=== PATIENT | female | born 1950 | race Caucasian/White ===

== ENCOUNTER → 2017-01-27 | Outpatient (CLI) | payer MEDICARE, BC | END | disposition home or self-care (01) | LOC: GMAB 13:54 | PROVIDERS: ATTEND Family Medicine | DX: R53.82 Chronic fatigue, unspecified (principal) ==

== ENCOUNTER → 2017-06-11 | Outpatient (CLI) | payer MEDICARE, BC ==
--- NOTE | 2017-06-12 10:12 | MRI ---
EXAM DESCRIPTION: Cervical Spine CLINICAL HISTORY: CERVICAL DISK DISORDER, RADICULOPATHY COMPARISON: None Available. TECHNIQUE: MRI of the cervical spine is performed according to our usual protocol. FINDINGS: Straightening of the cervical spine with multilevel disc degeneration and desiccation is present with posterior disc bulges at C4-5 and C5-6 with thecal sac in the lower range of normal. The prevertebral and paraspinous regions are unremarkable. No intradural or intramedullary abnormality is noted in the skull base and foramen magnum appear normal. Anterior degenerative changes at C1-2 articulation are noted without compromise of the foramen magnum. Vertebral height is maintained with mild disc space narrowing at C5-6. C2-3: the disc is well hydrated. There is no loss of height. There is no bulging. The facets are unremarkable with no significant hypertrophy. There is no stenosis or impingement. C3-4: the disc is well hydrated. There is no loss of height. There is no bulging. The facets are unremarkable with no significant hypertrophy. There is no stenosis or impingement. C4-5: Disc desiccation with symmetric annular bulge and borderline AP diameter canal stenosis with adequate neural foramina. C5-6: Disc desiccation and mild disc space narrowing with moderate annular bulge with borderline AP diameter canal stenosis with mild compromise both neural foramina. C6-7: the disc is well hydrated. There is no loss of height. There is no bulging. The facets are unremarkable with no significant hypertrophy. There is no stenosis or impingement. C7-T1: the disc is well hydrated. There is no loss of height. There is no bulging. The facets are unremarkable with no significant hypertrophy. There is no stenosis or impingement. IMPRESSION: 1. Straightening of the cervical spine with modest degenerative disc disease with annular bulges at C4-5 and C5-6 with borderline AP diameter canal stenosis at these two levels with moderate C5-6 foraminal narrowing and milder C4-5 neural foraminal narrowing. 2. The remainder the MRI examination is normal. Electronically signed by: Reyes Corea MD 06/12/2017 10:11 AM CDT
--- NOTE | 2017-06-12 11:18 | MRI ---
EXAM DESCRIPTION: Lumbar Spine w/o Contrast CLINICAL HISTORY: INTERVERTEBRAL DISC DISORDER, RADICULOPATHY COMPARISON: None Available. TECHNIQUE: MRI of the lumbar spine is performed according to our usual protocol with axial and sagittal multi sequence imaging. FINDINGS: MRI of the lumbar spine demonstrates normal alignment with preservation of vertebral and disc height with mild disc desiccation evident at L3-4 and L4-5. No intradural or intramedullary abnormality is noted in the conus is positioned at the lower T12 level. Spinal canal is adequate throughout and mild disc bulges at several levels are apparent. The paraspinous and retroperitoneal structures are unremarkable. L1-2: the disc is well hydrated. There is no loss of height. There is no bulging. The facets are unremarkable with no significant hypertrophy. There is no stenosis or impingement. L2-3: Very small right parasagittal disc protrusion partially effacing the thecal sac anteriorly and slight narrowing of the anterior inferior right L2 neural foramen with normal appearance of the disc otherwise. No significant facet arthropathy present. L3-4: Mild disc desiccation and mild symmetric annular bulge with mild facet arthropathy and adequate canal and neural foramina. L4-5: Mild disc desiccation and symmetric annular bulge with very slight fissuring of the left posterior lateral annulus with modest facet arthropathy. Adequate canal and neural foramina without lateralizing herniation. L5-S1: the disc is well hydrated. There is no loss of height. There is no bulging. The facets are unremarkable with no significant hypertrophy. There is no stenosis or impingement. IMPRESSION: 1. Normal alignment of the spine with adequate canal throughout with mild disc desiccation at L3-4 and L4-5. 2. Very small right parasagittal disc protrusion at L2-3 without definite neural compression. 3. Mild annular bulge at L4-5 with fissuring of the posterior lateral annulus on the left without lateralizing herniation with modest facet arthropathy. 4. Mild symmetric annular bulge and facet arthropathy L3-4 without neural compression. Electronically signed by: Reyes Corea MD 06/12/2017 11:17 AM CDT
== END | disposition home or self-care (01) ==
LOC: MRI 09:40
PROVIDERS: ATTEND Psychiatry & Neurology Neurology
DX: M50.122 Cervical disc disorder at C5-C6 level with radiculopathy (principal); M51.16 Intervertebral disc disorders with radiculopathy, lumbar region

== ENCOUNTER → 2018-07-15 | Outpatient (CLI) | payer MEDICARE, BC ==
--- NOTE | 2018-07-15 15:54 | MRI ---
EXAM DESCRIPTION: Brain w/oContrast: MRI. 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 Posterior head and neck pain. COMPARISON: MRI scan of the cervical spine. TECHNIQUE: Multiplanar, high-field MRI unit, multiple diffusion sequences, multiple conventional sequences without contrast. FINDINGS: Small bilateral foci of hyperintense FLAIR and T2-weighted signal in the periventricular white matter abutting the bilateral occipital horns of the lateral ventricles more on the left. Also superior to the bilateral ventricles. No hemorrhage, no cerebral edema, no mass-effect. No diffusion restriction. Normal signal in the bilateral basal ganglia. Normal signal in the brainstem and cerebellar hemispheres. No hemorrhage, no cerebral edema, no mass-effect. No diffusion restriction. Concordance of the diffusion and non-diffusion sequences with no diffusion restriction. Cortical sulci, ventricles, and other CSF spaces, and the subdural spaces are normally configured for patients age. No effacement or displacement. No midline shift. No extra-axial hemorrhage. Normal flow signal void in the major vessels of the [place], and the venous sinuses. IACs are symmetric bilaterally. Minimal fluid signal in the bilateral inferior mastoid air cells. No mass effect in the bilateral cerebellopontine angles. Pituitary gland occupies most of the sella. Base of the cerebellar tonsils is slightly above the foramen magnum. Normal signal in the paranasal sinuses.. The bony calvarium is intact. IMPRESSION: 1. Abnormal white matter signal abutting the ventricles bilaterally, especially the occipital horns, is stable since the prior study. No intra-axial or extra-axial hemorrhage. No mass effect. No diffusion restriction. 2. Normal noncontrast diffusion study with no evidence for acute or subacute infarction bilaterally. 3. 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 Electronically signed by: Rosendo Martin MD 07/15/2018 3:53 PM CDT
--- NOTE | 2018-07-15 16:12 | MRI ---
EXAM DESCRIPTION: Cervical Spine: MRI. CLINICAL HISTORY: CERVICAL DISC DISORDER AT C5-6 LEVEL WITH RADICULOPATHY COMPARISON: MRI scan cervical spine without contrast March 11, 2017. TECHNIQUE: Multiplanar MRI, multiple sequences, non-contrast High-field. Cervical spine. FINDINGS: C4-5: Minimal loss of disc space with desiccation of the disc. Posterior tiny disc bulge not abutting the cord. Right uncinate spur with minimal right neural foraminal narrowing. Posterior flavum ligament hypertrophy. Mild canal narrowing. Left neuroforamen patent. Facets are negative. C5-6: Disc space decreased with disc desiccation. Posterior midline bulge abutting the cord. Bilateral uncinate spurs. Hypertrophy of the posterior flavum ligaments. Borderline left neural foraminal stenosis. Moderate right neural foraminal narrowing and moderate canal narrowing. Bilateral facets are unremarkable.. Normal signal in the remaining discs with no bulging. Disc spaces preserved. Canal and neural foramina are patent. Facets are negative. Spinal alignment anatomic. No cord compression or cord edema. Atlantoaxial joint is unremarkable. Partially fused odontoid process.. Base of the cerebellar tonsils is above the foramen magnum. Paravertebral soft tissues negative.. Vertebral bodies are not compressed at any level. Normal marrow signal in the remaining vertebral bodies and the posterior elements. Posterior bulge of the C4-5 disc. Minimal right neural foraminal narrowing. IMPRESSION: 1. Borderline left neural foraminal stenosis at C5-6. Stable since the prior study. Moderate canal narrowing also stable. Bulging discs with no herniation. 2. Electronically signed by: Rosendo Martin MD 07/15/2018 4:11 PM CDT
== END ==
LOC: MRI 13:30
PROVIDERS: ATTEND Psychiatry & Neurology Neurology
DX: G43.019 Migraine without aura, intractable, without status migrainosus (principal); M50.122 Cervical disc disorder at C5-C6 level with radiculopathy; G56.01 Carpal tunnel syndrome, right upper limb; G56.02 Carpal tunnel syndrome, left upper limb; G60.3 Idiopathic progressive neuropathy; M51.16 Intervertebral disc disorders with radiculopathy, lumbar region

== ENCOUNTER → 2019-09-29 | Outpatient (CLI) | payer MEDICARE, BC | END | disposition home or self-care (01) | LOC: GMAE 10:29 | PROVIDERS: ATTEND Family Medicine | DX: E03.9 Hypothyroidism, unspecified (principal) ==

== ENCOUNTER → 2020-03-30 | Outpatient (CLI) | payer MEDICARE, BC | LOC: GMAE 17:19 | PROVIDERS: ATTEND Family Medicine | DX: E03.9 Hypothyroidism, unspecified (principal) ==

== ENCOUNTER → 2020-11-28 | Outpatient (CLI) | payer MEDICARE, BC | LOC: GMAE 11:52 | PROVIDERS: ATTEND Family Medicine | DX: E03.9 Hypothyroidism, unspecified (principal); Z79.899 Other long term (current) drug therapy ==